=== PATIENT | male | born 1950 | race Caucasian/White ===

== ENCOUNTER → 2019-12-07 | Outpatient (CLI) | payer MEDICARE, OTHER ==
[~2019-12-07] MED LIST: ALEVE; AMBIEN10 MG PO; ASPIR 8181 MG PO; ENOXAPARIN30 MG/0.3 SQ; IBUPROFEN; KEFLEX500 MG PO; MULTI-VITAMIN1 EACH PO; MULTIVITAMIN; NORCO 7.5-3251 EACH PO; VALIUM5 MG PO
--- NOTE | 2019-12-07 11:19 | Diagnostic Imaging Report ---
TECHNIQUE: Magnetic resonance imaging of the PELVIS was performed WITHOUT injected contrast using standard departmental protocols. HISTORY: Pelvic pain COMPARISON: None. FINDINGS: Bone and bone marrow: No focal or infiltrative bone marrow replacing abnormality. No fracture or osteonecrosis. Hips and sacroiliac joints: Mild degenerative arthrosis of the sacroiliac and hip joints with partial-thickness cartilage loss. Degenerative arthrosis of the pubic symphysis with reactive edema. Degenerative disc disease of the lumbar spine. Refer to MRI report. Soft tissues: The iliopsoas tendons are intact. The gluteal tendon insertions on the greater trochanter are intact. 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 Hamstring origin tendinopathy Signed by: Dr. Isiah Bilyl M.D. on 12/07/2019 11:16 AM
--- NOTE | 2019-12-10 07:36 | Diagnostic Imaging Report ---
History: Acute pelvic/bilateral hip pain Comparison studies: None Technique: Sagittal and axial T2 , sagittal T1 and IR, axial spin density oblique, coronal T2. Intravenous contrast: None Findings: Number of lumbar vertebral bodies: 5. Alignment: Normal lumbar lordosis with dextro lumbar curvature with apex at L2-L3. Soft tissues: No T2 hyperintense inflammatory changes. Paraspinal muscles: No T2 hyperintense signal changes. Mild symmetric fatty-replaced atrophy. Lower thoracic cord: Normal in signal and morphology. The tip of the conus is at T12-L1. Cauda equina: No masses. No arachnoiditis. Vertebrae: No compression fracture or infection. Multilevel degenerative endplate changes with prominent fatty-replaced marrow changes. Interspersed degenerative endplate edema present anteriorly at T11-T12, posteriorly at L2-L3, along and L3 inferior endplate Schmorl's node along the anterior inferior L5 endplate. Slightly more focal T2/STIR hyperintensity within the anterior inferior L4 vertebral body measures up to 2.5 cm in greatest axial dimension and is favored to be benign and degenerative in etiology. Moreover, lesion is otherwise without concerning radiographic features (i.e. associated soft tissue mass, extension beyond the vertebral body cortical margin or pedicle involvement) and other bone lesion or metastasis is felt less likely. Degenerative changes: Multilevel anterior marginal osteophytes are present throughout the included thoracic and lumbar spine. T10-T11 and T11-T12: Mildly degenerated disks. Mild foraminal narrowing bilaterally at T10-T11 due to facet arthrosis. T12-L1: Patent canal and foramina. L1-L2: Mildly degenerated disc. Disc bulge with prominent right foraminal-foraminal disc osteophyte complex with annular fissure and mild facet arthrosis with severe right foraminal stenosis and impingement on the right L1 nerve root. No significant canal or left foraminal stenosis. L2-L3: Moderately degenerated disc asymmetrically on the left along the concavity lumbar curvature. Asymmetric left disc osteophyte complex, mildly thickened ligamentum flavum and bilateral facet arthrosis with moderate bilateral foraminal stenosis. No significant canal stenosis. L3-L4: Moderately degenerated disc asymmetrically on the left along the concavity lumbar curvature. Asymmetric left disc osteophyte complex, thickened ligamentum flavum and severe left and moderate right facet arthrosis. With severe left and moderate right foraminal stenosis and mild canal stenosis. L4-L5: Mildly degenerated disc, slightly greater on the right. Asymmetric right disc bulge, thickened ligamentum flavum and severe bilateral facet arthrosis with severe right and mild left foraminal stenosis and mild canal stenosis. L5-S1: Mildly degenerated disc. Minimal anterolisthesis of L5 on S1 with associated uncovered disc/disc bulge, thickened ligamentum flavum and severe right and moderate left facet arthrosis with severe right and mild left foraminal stenosis and mild canal stenosis. Partially imaged sacroiliac joints: Degenerative changes bilaterally with mild edema along the ileal articulation. IMPRESSION: 1. Dextro lumbar curvature with multilevel disc degeneration, multilevel reactive endplate changes and advanced multilevel facet arthrosis. 2. Mild multilevel degenerative stenosis, greatest at L4-5. 3. Varying degrees of moderate to severe degenerative foraminal stenosis from L1 to S1 as described. 4. Focal signal abnormality in the L4 vertebral body is favored to be degenerative and reactive and less other primary bone lesion or metastasis. Moreover, follow-up lumbar spine MRI could be considered to document stability or resolution. Signed by: Dr. Hernan Guerra M.D. on 12/10/2019 7:34 AM
== END ==
LOC: MRI 09:23
PROVIDERS: ATTEND Family Medicine
DX: R10.2 Pelvic and perineal pain (principal); M25.552 Pain in left hip; M25.551 Pain in right hip
CPT/HCPCS: 72148; 72195

== ENCOUNTER → 2019-12-10 | Day surgery (SDC) | payer MEDICARE, OTHER ==
[2019-12-07 12:59] LABS: BASOPHILS # (AUTO) 0.1 (0.0-0.1); BASOPHILS % 1.1 % (0.0-1.0); EOSINOPHILS # (AUTO) 0.2 (0.0-0.4); EOSINOPHILS % 3.1 % (0.0-6.0); HEMOGLOBIN 14.9 g/dL (14.0-18.0); LYMPHOCYTES % 36.5 % (18.0-39.1); MEAN CORPUSCULAR HEMOGLOBIN 30.2 pg (28-32); MEAN CORPUSCULAR HGB CONC 33.9 g/dL (31-35); MEAN CORPUSCULAR VOLUME 89.2 fL (81-99); MONOCYTES # (AUTO) 0.6 (0.2-0.8); MONOCYTES % 10.9 % (4.4-11.3); NEUTROPHILS # (AUTO) 2.6 (2.1-6.9); NEUTROPHILS % 48.2 % (38.7-80.0); PLATELET COUNT 200 x10e3/uL (140-360); RED BLOOD COUNT 4.93 x10e6/uL (4.3-5.7); RED CELL DISTRIBUTION WIDTH 13.3 % (11.7-14.4)
[~2019-12-10] MED LIST changes: +FENTANYL CITRATE/PF 100MCG/2 ML INJ ONE; +HYOSCYAMINE 0.125 MG TAB ONE; +MIDAZOLAM HCL 2 MG/2 ML VIAL ONE; +PROPOFOL IV EMULSION 10 MG/ML 50 ML VIAL ONE
--- OUTSIDE RECORDS SUMMARY | 2019-12-10 09:27 | XMS REPORT ---
Author [facility] Address Unknown Phone Unavailable Care Team Providers Care Furniture Mover Name Role Phone USHA DOBBINS Unavailable Unavailable Problems This patient has no known problems. Allergies, Adverse Reactions, Alerts This patient has no known allergies or adverse reactions. Medications This patient has no known medications. Results Test Description Test Time Test Comments Text Results Atomic Results Result Comments MRI SPINE LUMBAR WO 2019-12-10 07:02:00 [place] [address] Patient Name: ESTHER CHAPPELL MR #: [id number] : 1950 Age/Sex: 69/M Req #: [id number] Adm Physician: Ordered by: USHA DOBBINS DO Report #: [id number] Location: MRI Room/Bed: Procedure: [id number] MRI/MRI SPINE LUMBAR WO Exam Date: Exam Time: REPORT STATUS: Signed History: Acute pelvic/bilateral hip pain Comparison studies: None Technique: Sagittal and axial T2 , sagittal T1 and IR, axial spin density oblique, coronal T2. Intravenous contrast: None Findings: Number of lumbar vertebral bodies: 5. Alignment: Normal lumbar lordosis with dextro lumbar curvature with apex at L2-L3. Soft tissues: No T2 hyperintense inflammatory changes. Paraspinal muscles: No T2 hyperintense signal changes. Mild symmetric fatty-replaced atrophy. Lower thoracic cord: Normal in signal and morphology. The tip of the conus is at T12-L1. Cauda equina: No masses. No arachnoiditis. Vertebrae: No compression fracture or infection. Multilevel degenerative endplate changes with prominent fatty-replaced marrow changes. Interspersed degenerative endplate edema present anteriorly at T11-T12, posteriorly at L2-L3, along and L3 inferior endplate Schmorl's node along the anterior inferior L5 endplate. Slightly more focal T2/STIR hyperintensity within the anterior inferior L4 vertebral b madina measures up to 2.5 cm in greatest axial dimension and is favored to be benign and degenerative in etiology. Moreover, lesion is otherwise without concerning radiographic features (i.e. associated soft tissue mass, extension beyond the vertebral body cortical margin or pedicle involvement) and other bone lesion or metastasis is felt less likely. Degenerative changes: Multilevel anterior marginal osteophytes are present throughout the included thoracic and lumbar spine. T10-T11 and T11-T12: Mildly degenerated disks. Mild foraminal narrowing bilaterally at T10-T11 due to facet arthrosis. T12-L1: Patent canal and foramina. L1-L2: Mildly degenerated disc. Disc bulge with prominent right foraminal-foraminal disc osteophyte complex with annular fissure and mild facet arthrosis with severe right foraminal stenosis and impingement on the right L1 nerve root. No significant canal or left foraminal stenosis. L2-L3: Moderately degenerated disc asymmetrically on the left along the concavity lumbar curvature. Asymmetric left disc osteophyte complex, mildly thickened ligamentum flavum and bilateral facet arthrosis with moderate bilateral foraminal stenosis. No significant canal stenosis. L3-L4: Moderately degenerated disc asymmetrically on the left along the concavity lumbar curvature. Asymmetric left disc osteophyte complex, thickened ligamentum flavum and severe left and moderate right facet arthrosis. With severe left and moderate right foraminal stenosis and mild canal stenosis. L4-L5: Mildly degenerated disc, slightly greater on the right. Asymmetric right disc bulge, thickened ligamentum flavum and severe bilateral facet arthrosis with severe right and mild left foraminal stenosis and mild canal stenosis. L5-S1: Mildly degenerated disc. Minimal anterolisthesis of L5 on S1 with associated uncovered disc/disc bulge, thickened ligamentum flavum and severe right and moderate left facet arthrosis with severe right and mild left foraminal stenosis and mild canal stenosis. Partially imaged sacroiliac joints: Degenerative changes bilaterally with mild edema along the ileal articulation. IMPRESSION: 1. Dextro lumbar curvature with multilevel disc degeneration, multilevel reactive endplate changes and advanced multilevel facet arthrosis. 2. Mild multilevel degenerative stenosis, greatest at L4-5. 3. Varying degrees of moderate to severe degenerative foraminal stenosis from L1 to S1 as described. 4. Focal signal abnormality in the L4 vertebral body is favored to be degenerative and reactive and less other primary bone lesion or metastasis. Moreover, follow-up lumbar spine MRI could be considered to document stability or resolution. Signed by: Dr. Joan Guerra M.D. on 12/10/2019 7:34 AM Dictated By: JOAN GUERRA MD 3 Transcribed By: LISSA on 12/10/19733 COPY TO: USHA DOBBINS DO MRI PELVIS WO 2019-12-07 11:11:00 [place] [address] Patient Name: ESTHER CHAPPELL MR #: [id number] : 1950 Age/Sex: 69/M Req #: [id number] [facility] Physician: Ordered by: USHA DOBBINS DO Report #: [id number] Location: MRI Room/Bed: Procedure: [id number] MRI/MRI PELVIS WO Exam Date: Exam Time: REPORT STATUS: Signed TECHNIQUE: Magnetic resonance imaging of the PELVIS was performed WITHOUT injected contrast using standard departmental protocols. HISTORY: Pelvic pain COMPARISON: None. FINDINGS: Bone and bone marrow: No focal or infiltrative bone marrow replacing abnormality. No fracture or osteonecrosis. Hips and sacroiliac joints: Mild degenerative arthrosis of the sacroiliac and hip joints with partial-thickness cartilage loss. Degenerative arthrosis of the pubic symphysis with reactive edema. Degenerative disc disease of the lumbar spine. Refer to MRI report. Soft tissues: The iliopsoas tendons are intact. The gluteal tendon insertions on the greater trochanter are intact. 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 Hamstring origin tendinopathy Signed by: Dr. Grzegorz Earl M.D. on 12/07/2019 11:16 AM Dictated By: GRZEGORZ EARL MD [id number] Transcribed By: LISSA on 12/07/19 1116 COPY TO: USHA DOBBINS DO
[2019-12-10 13:54] VITALS: BP 105/73
--- NOTE | 2019-12-10 14:01 | Operative Report ---
DATE OF PROCEDURE: 12/10/2019 SURGEON: David Shipman MD PROCEDURE: Colonoscopy with polypectomy. INDICATIONS FOR COLONOSCOPY: Colorectal cancer screening. MEDICATIONS: The patient was done under MAC, please see anesthesiologist's note. PROCEDURE IN DETAIL: With the patient in the left lateral decubitus position, a flexible fiberoptic Olympus colonoscope was inserted into the rectum with ease and advanced all the way to the cecum. It was then withdrawn slowly, mucosa overlying the cecum and the ascending colon grossly appeared to be within normal limits. Two polyps were hot snared from the transverse colon. Diverticular disease was noted in the descending and the sigmoid colon. One polyp was hot snared in the sigmoid colon. One polyp was hot biopsied in the rectum. The scope was then retroflexed into the distal rectum and small internal hemorrhoids were noted, none of which was actively bleeding. The scope was then straightened out, it was subsequently withdrawn, and the patient tolerated the procedure well. IMPRESSION: 1. Transverse colon polyps x2, hot snared. 2. Diverticulosis. 3. Sigmoid colon polyp, hot snared. 4. Rectal polyp x1, hot biopsied. 5. Internal hemorrhoids, none actively bleeding. PLAN: Follow up histology. Initiate high-fiber, low-fat diet. Initiate high-fiber supplement. The patient might benefit from a followup colonoscopy in 3 years. David Shipman MD [facility] [place] /[id number] cc: Alexei Allen DO
== END | disposition home or self-care (01) ==
LOC: OR 09:16
PROVIDERS: ATTEND Internal Medicine Gastroenterology
DX: Z12.11 Encounter for screening for malignant neoplasm of colon (principal); D12.8 Benign neoplasm of rectum; R03.0 Elevated blood-pressure reading, without diagnosis of hypertension; F17.210 Nicotine dependence, cigarettes, uncomplicated; Z01.810 Encounter for preprocedural cardiovascular examination; Z01.812 Encounter for preprocedural laboratory examination; Z79.82 Long term (current) use of aspirin
CPT/HCPCS: 36415; 45384; 45385; 85025; 88305; 93005; J2250; J2704; J3010; 45378

== ENCOUNTER → 2023-04-15 | Outpatient (CLI) | payer MEDICARE, OTHER ==
[~2023-04-15] MED LIST changes: -FENTANYL CITRATE/PF 100MCG/2 ML INJ ONE; -HYOSCYAMINE 0.125 MG TAB ONE; -MIDAZOLAM HCL 2 MG/2 ML VIAL ONE; -PROPOFOL IV EMULSION 10 MG/ML 50 ML VIAL ONE
== END ==
LOC: MRI 09:45
PROVIDERS: ATTEND Family Medicine
DX: M79.661 Pain in right lower leg (principal)